=== PATIENT | female | born 1940 | race Caucasian/White ===

== ENCOUNTER 2024-10-30 06:55 | Observation (INO) ==
--- NOTE | 2024-09-23 15:27 | PAT Medication Instructions ---
Medication Instructions Date of Service September 23, 2024 Home Medications Medication Instructions Recorded Bifidobacterium infantis 10.5 mg 10.5 mg PO DAILY #30 tabs 02/07/24 (10 million cell) chewable tablet (Align (B.infantis)) Medication List: amlodipine 5 mg tablet 5 mg PO QPM aspirin 81 mg tablet,delayed release 81 mg PO QPM calcium 315 mg (as citrate)-vitamin D3 6.25 mcg (250 unit) tablet (Citracal + Vitamin D Maximum) 2 tab PO DAILY coQ10 (ubiquinol) 100 mg capsule (Qunol Soto CoQ10) 100 mg PO DAILY losartan 100 mg tablet 100 mg PO HS sskowzkj-ivt-ivzxxw 5 mg-zeaxanth 1 mg-bilberry 7.5 mg-herbal capsule (Macular Health Formula) 1 cap PO BID pantoprazole 20 mg tablet,delayed release 20 mg PO BID pravastatin 20 mg tablet 20 mg PO HS Bifidobacterium infantis 10.5 mg (10 million cell) chewable tablet (Align (B.infantis)) 10.5 mg PO DAILY fluticasone propionate 50 mcg/actuation nasal spray,suspension (Flonase Allergy Relief) 2 mcg intranasal UD PRN allergies neomycin 500 mg tablet 500 mg PO BID omega 1-xio-jef-fish oil 900 mg-1,400 mg capsule,delayed release 1 cap PO DAILY rifaximin 550 mg tablet (Xifaxan) 550 mg PO TID MEDICATION INSTRUCTIONS: Continue as directed fluticasone propionate 50 mcg/actuation nasal spray,suspension (Flonase Allergy Relief) 2 mcg intranasal UD PRN allergies neomycin 500 mg tablet 500 mg PO BID rifaximin 550 mg tablet (Xifaxan) 550 mg PO TID ASK your prescriber and surgeon aspirin 81 mg tablet,delayed release 81 mg PO QPM STOP taking 2 weeks before surgery omega 2-htm-ghl-fish oil 900 mg-1,400 mg capsule,delayed release 1 cap PO DAILY coQ10 (ubiquinol) 100 mg capsule (Qunol Soto CoQ10) 100 mg PO DAILY DO NOT take the morning of surgery calcium 315 mg (as citrate)-vitamin D3 6.25 mcg (250 unit) tablet (Citracal + V itamin D Maximum) 2 tab PO DAILY Bifidobacterium infantis 10.5 mg (10 million cell) chewable tablet (Align (B.infantis)) 10.5 mg PO DAILY xyzscexv-kvo-jgiius 5 mg-zeaxanth 1 mg-bilberry 7.5 mg-herbal capsule (Macular Health Formula) 1 cap PO BID Take morning of surgery With a small sip of water, OTHERWISE NOTHING TO EAT OR DRINK AFTER MIDNIGHT: pantoprazole 20 mg tablet,delayed release 20 mg PO BID Take evening before surgery pravastatin 20 mg tablet 20 mg PO HS losartan 100 mg tablet 100 mg PO HS amlodipine 5 mg tablet 5 mg PO QPM pantoprazole 20 mg tablet,delayed release 20 mg PO BID gqnxfnif-hid-rieetf 5 mg-zeaxanth 1 mg-bilberry 7.5 mg-herbal capsule (Macular Health Formula) 1 cap PO BID Other Notes If you have any questions please call us at [phone] or [phone] or [phone] or [phone]
--- NOTE | 2024-10-02 13:09 | Anesthesiology Consultation ---
Date of Service October 02, 2024 Assessment & Plan (1) Encounter for pre-operative examination: - patient reports upcoming carotid doppler next week through [facility] vascular surgery. - Case discussed in detail with Dr. Esquivel who advised awaiting carotid doppler and then reviewing with anesthesiologist if anything further is needed, he anticipates if doppler is stable patient could proceed without additional evaluation. - Outpatient joint assessment: Patient is currently scheduled for inpatient pathway. If re-evaluated and patient/surgeon requests outpatient pathway, patient is not ideal candidate for outpatient joint program from anesthesia standpoint. Chart Review Chart Review: Pending: Refer to Additional Notes / Consult section and Patient seen in Pre Admission Testing Teaching & Discussion Pre-Anesthesia Teaching/Discussion Notes: Instructed NPO after midnight before surgery, except medications with 15 cc of water. Medication instructions provided according to the PAT guidelines. History Surgery Operation Date: 10/30/24 08:15 Proposed Procedures p Right Total Knee Arthroplasty - Collin Rogers MD Height/Weight Height: 5 ft 1.5 in Weight: 52.3 kg Allergies Allergy/AdvReac Type Severity Reaction Status Date / Time Alpha-Gal Allergy Intermediate Diarrhea Verified 09/23/24 10:37 (Trfmtvtbo-Xcqjh-8,3-Gala Penicillins Allergy Intermediate Hives Verified 10/02/24 15:54 latex Allergy Mild Rash Verified 09/23/24 10:37 red meat Allergy Mild Abdominal Uncoded 09/23/24 10:37 Pain Medications Home Medications Medication Instructions Recorded Confirmed Last Taken amlodipine 5 mg tablet 5 mg PO QPM 02/05/24 09/23/24 05/19/24 aspirin 81 mg tablet,delayed 81 mg PO QPM 02/05/24 09/23/24 05/16/24 release calcium 315 mg (as 2 tab PO DAILY 02/05/24 09/23/24 05/19/24 citrate)-vitamin D3 6.25 mcg (250 unit) tablet (Citracal + Vitamin D Maximum) coQ10 (ubiquinol) 100 mg capsule 100 mg PO DAILY 02/05/24 09/23/24 05/19/24 (Qunol Soto CoQ10) losartan 100 mg tablet 100 mg PO HS 02/05/24 09/23/24 05/19/24 zfqixnjl-vky-meipzk 5 mg-zeaxanth 1 cap PO BID 02/05/24 09/23/24 05/19/24 1 mg-bilberry 7.5 mg-herbal capsule (Macular Health Formula) pantoprazole 20 mg tablet,delayed 20 mg PO BID 02/05/24 09/23/24 05/20/24 07:00 release pravastatin 20 mg tablet 20 mg PO HS 02/05/24 09/23/24 05/19/24 Bifidobacterium infantis 10.5 mg 10.5 mg PO DAILY #30 tabs 02/07/24 09/23/24 05/19/24 (10 million cell) chewable tablet (Align (B.infantis)) fluticasone propionate 50 2 mcg intranasal UD PRN allergies 09/23/24 09/23/24 Unknown mcg/actuation nasal spray,suspension (Flonase Allergy Relief) neomycin 500 mg tablet 500 mg PO BID 09/23/24 09/23/24 Unknown omega 4-lyo-ybs-fish oil 900 1 cap PO DAILY 09/23/24 09/23/24 Unknown mg-1,400 mg capsule,delayed release rifaximin 550 mg tablet (Xifaxan) 550 mg PO TID 09/23/24 09/23/24 Unknown Past Medical History Medical History Acid reflux controlled, stable per pt 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 traylor- no concerns, will follow up in december Diarrhea Hiatal hernia HTN (hypertension) controlled, stable per pt Hx of Lyme disease (~2017) Hx of migraines Hyperlipidemia Osteoarthritis Other abnormal clinical finding "Hydrogen Methane Imbalance" treated at [place]-reports diarrhea/acid reflux are the symptoms Peripheral artery disease Right knee DJD Patient denies h/o stroke, seizures, heart attack, heart failure, DM, blood clots/DVTs or blood transfusions. Exercise / Class Metabolic Activity II 4-5 Yardwork/Stairs/Walk up hill (denies chest discomfort or shortness of breath with one flight of stairs) Past Family History Family History Mother Ovarian cancer Denies family history of Prostate cancer Breast cancer Colorectal cancer Past Surgical History Surgical History History of esophagogastroduodenoscopy (EGD) History of left knee replacement Hx of colonoscopy Hx of shoulder surgery right mass removed- benign Past Anesthesia History No Hx of Anesthesia Complications and No Family Hx of Anesthesia Complications History of PONV No Hx of Motion Sickness and History of PONV Social History Smoking Status: Never smoker Do You Dip or Chew Tobacco: No Hx Alcohol Use: Yes Alcohol type: wine alcohol intake frequency: a few times a week Hx Substance Use: No substance use type: does not use Review of Systems Patient denies chest pain, shortness of breath, dyspnea on exertion, snoring, witnessed apneas, fever, chills, cough, wheezing, or palpitations. Physical Exam Vital Signs Vitals BP 147/70 P 62 TEMP 97.6 SP02 99% on RA RESP 18 Physical Patient resting comfortably in chair in no acute distress, alert and oriented, responding appropriately throughout visit Full cervical extension range of motion without pain TMD 3.5 finger breadths Mallampati Score 2 Dentition: several caps/crowns and implants, denies chipped or loose teeth, or bridges Lungs: normal respiratory effort. Good air movement, clear throughout to auscultation, no adventitious breath sounds Cardiac: regular rate and rhythm, no murmurs noted Carotid arteries: negative bruit bilat Lab Results Anesthesia Preop Results Results Anesthesia Widget: WBC 10.43 K/ul (4.8-10.8) 10/02/24 Hgb 13.9 g/dl (12.0-16.0) 10/02/24 Hct 40.9 % (37.0-47.0) 10/02/24 Plt 324 K/uL (130-400) 10/02/24 Na 137 mmol/L (136-145) 10/02/24 K 4.1 mmol/L (3.5-5.1) 10/02/24 Cl 103 mmol/L (98-107) 10/02/24 CO2 31 mmol/L (21-32) 10/02/24 BUN 15 mg/dl (6-23) 10/02/24 Creat 0.75 mg/dl (0.6-1.2) 10/02/24 Glucose Level 136 mg/dl (70-99(Fasting)) H 10/02/24 PT 11.0 Seconds (9.0-12.0) 10/02/24 PTT 29 Seconds (21-31) 10/02/24 INR 1.0 (0.9-1.1) 10/02/24 Urine Color Yellow 10/02/24 Urine Appearance Clear (Clear) 10/02/24 Urine pH 6.0 (4.5-7.5) 10/02/24 Urine Specific [place] 1.006 (1.000-1.030) 10/02/24 Urine Protein Negative (Negative) 10/02/24 Urine Glucose (UA) Negative (Negative) 10/02/24 Urine Ketones Negative (Negative) 10/02/24 Urine Blood Negative (Negative) 10/02/24 Urine Nitrite Negative (Negative) 10/02/24 Urine Bilirubin Negative (Negative) 10/02/24 Urine Urobilinogen Negative (Negative) 10/02/24 Urine Leukocyte Esterase Negative (Negative) 10/02/24 Blood Type O Positive 10/02/24 Antibody Screen NEGATIVE 10/02/24 Testing Electrocardiogram Date: 10/02/24 NSR, rate [address] bpm [address] minor nonspecific ST abnormality
[~2024-10-30 06:55] MED LIST: ALLERGY Noted to ORDERED Medication SCH; BUPIVACAINE 0.25% PF 30 ML VIAL ONE; BUPIVACAINE 0.5 % 5 MG/1 ML PF 10ML VIAL ONE
[2024-10-30] MEDS: LR 500ML BOLUS, THEN 15ML/HR IV SCH (07:26)
[2024-10-30] MEDS: dexAMETHasone**PF** 10 MG/ML VIAL IV SCH (07:29)
[2024-10-30] MEDS: ACETAMINOPHEN 500 MG TAB PO SCH ×2 (07:30→14:17)
[2024-10-30] MEDS: traMADol HCL 50 MG TABLET PO SCH (07:30)
[2024-10-30] MEDS: FAMOTIDINE 20 MG TAB PO SCH (07:30)
[2024-10-30] MEDS: CeleBREX 200 MG CAP PO SCH ×2 (07:31→21:06)
[2024-10-30] MEDS: LR 60ML/HR IV SCH (07:32)
[2024-10-30] MEDS: Scopolamine 1 MG TDSY TD SCH (07:32)
[2024-10-30] MEDS ORDERED: MIDAZOLAM HCL 1 MG/ML 2ML VIAL ONE (07:54)
[2024-10-30] MEDS ORDERED: ROPIVACAINE 0.5% 5 MG/ML 30 ML VIAL ONE (08:02)
--- NOTE | 2024-10-30 08:04 | Anesthesiology Consultation ---
Date of Service October 30, 2024 Assessment & Plan Chart Review Chart Review: Acceptable Risk for Surgery Consults Requested none History Surgery Operation Date: 10/30/24 08:15 Proposed Procedures p Right Total Knee Arthroplasty - Collin Rogers MD Height/Weight Height: 5 ft 1.5 in Weight: 52.191 kg Allergies Allergy/AdvReac Type Severity Reaction Status Date / Time latex Allergy Mild Rash Verified 10/30/24 07:13 nickel Allergy Mild Rash Verified 10/30/24 07:13 Alpha-Gal AdvReac Intermediate Diarrhea Verified 10/30/24 07:13 (Iqevlhguc-Khoob-9,3-Gala red meat Allergy Mild Abdominal Uncoded 10/30/24 07:13 Pain Medications Home Medications Medication Instructions Recorded Confirmed Last Taken amlodipine 5 mg tablet 5 mg PO QPM 02/05/24 10/30/24 10/29/24 21:00 aspirin 81 mg tablet,delayed 81 mg PO QPM 02/05/24 10/30/24 10/29/24 21:00 release calcium 315 mg (as 2 tab PO DAILY 02/05/24 10/30/24 10/29/24 08:00 citrate)-vitamin D3 6.25 mcg (250 unit) tablet (Citracal + Vitamin D Maximum) coQ10 (ubiquinol) 100 mg capsule 100 mg PO DAILY 02/05/24 10/30/24 10/16/24 (Qunol Soto CoQ10) losartan 100 mg tablet 100 mg PO HS 02/05/24 10/30/24 10/29/24 21:00 ehysgmpj-idc-wmjemc 5 mg-zeaxanth 1 cap PO BID 02/05/24 10/30/24 10/29/24 21:00 1 mg-bilberry 7.5 mg-herbal capsule (Macular Health Formula) pantoprazole 20 mg tablet,delayed 20 mg PO BID 02/05/24 10/30/24 10/30/24 06:10 release pravastatin 20 mg tablet 20 mg PO HS 02/05/24 10/30/24 10/29/24 21:00 Bifidobacterium infantis 10.5 mg 10.5 mg PO DAILY #30 tabs 02/07/24 10/30/24 10/29/24 08:00 (10 million cell) chewable tablet (Align (B.infantis)) fluticasone propionate 50 2 mcg intranasal UD PRN allergies 09/23/24 10/30/24 10/29/24 15:00 mcg/actuation nasal spray,suspension (Flonase Allergy Relief) omega 5-qtt-egd-fish oil 900 1 cap PO DAILY 09/23/24 10/30/24 10/16/24 mg-1,400 mg capsule,delayed release Active Medications Generic Name Dose Route Start Last Admin Trade Name Freq PRN Reason Stop Dose Admin Acetaminophen 1,000 mg 10/30/24 06:00 10/30/24 07:30 Acetaminophen 500 Mg Tab PO 10/30/24 18:00 1,000 mg PREOP EDNA Administration Celecoxib 200 mg 10/30/24 06:00 10/30/24 07:31 Celebrex 200 Mg Cap PO 10/30/24 18:00 200 mg PREOP EDNA Administration Dexamethasone Sodium Phosphate 10 mg 10/30/24 06:00 10/30/24 07:29 DexamethasonePf 10 Mg/Ml Vial IV 10/30/24 18:00 10 mg PREOP EDNA Administration Famotidine 20 mg 10/30/24 06:00 10/30/24 07:30 Famotidine 20 Mg Tab PO 10/30/24 18:00 20 mg PREOP EDNA Administration Lactated Ringer's 1,000 mls @ 15 mls/hr 10/30/24 06:00 10/30/24 07:26 Lr IV 10/30/24 18:00 15 mls/hr .Q24H EDNA Administration Lactated Ringer's 1,000 mls @ 60 mls/hr 10/30/24 06:00 10/30/24 07:32 Lr IV 10/30/24 22:39 Not Given .[id number] EDNA Scopolamine 1 patch 10/30/24 06:00 10/30/24 07:32 Scopolamine 1 Mg Tdsy TD 10/30/24 18:00 1 patch PREOP EDNA Administration Tramadol HCl 50 mg 10/30/24 06:00 10/30/24 07:30 Tramadol Hcl 50 Mg Tablet PO 10/30/24 18:00 50 mg PREOP EDNA Administration NPO Date Last Intake of Fluids: 10/29/24 Time Last Intake of Fluids: 22:00 Date Last Intake of Solids: 10/29/24 Time Last Intake of Solids: 22:00 Past Medical History Medical History Acid reflux controlled, stable per pt 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 traylor- no concerns, will follow up in december Diarrhea Hiatal hernia HTN (hypertension) controlled, stable per pt Hx of Lyme disease (~2018) Hx of migraines Hyperlipidemia Osteoarthritis Other abnormal clinical finding "Hydrogen Methane Imbalance" treated at [place]-reports diarrhea/acid reflux are the symptoms Peripheral artery disease Right knee DJD Past Family History Family History Mother Ovarian cancer Denies family history of Prostate cancer Breast cancer Colorectal cancer Past Surgical History Surgical History History of esophagogastroduodenoscopy (EGD) History of left knee replacement Hx of colonoscopy Hx of shoulder surgery right mass removed- benign Social History Smoking Status: Never smoker Do You Dip or Chew Tobacco: No Hx Alcohol Use: Yes Alcohol type: wine alcohol intake frequency: a few times a week Hx Substance Use: No substance use type: does not use Physical Exam Vital Signs Last Vital Signs Temp 36.6 C 10/30/24 07:16 Pulse 67 10/30/24 07:16 Resp 20 10/30/24 07:16 BP 145/73 H 10/30/24 07:16 Pulse Ox 100 10/30/24 07:16 O2 Del Method Room Air 10/30/24 07:16
--- NOTE | 2024-10-30 08:05 | History & Physical Bridge Note ---
Date of Service October 30, 2024 History & Physical Bridge Note I have examined the patient, reviewed the History & Physical and in the interval since the performance of the History & Physical I have noted the following changes of clinical significance: no changes noted
[2024-10-30] MEDS: TRANEXAMIC ACID 1,000 MG **IV Pre-op IV SCH (08:06)
[2024-10-30] MEDS: ceFAZolin 2000MG 2,000 MG/15 ML SYR IV SCH ×2 (08:26→16:33)
[2024-10-30] MEDS ORDERED: ePHEDrine sulfate 50 MG/ML AMP IV PRN (08:54)
[2024-10-30] MEDS ORDERED: ONDANSETRON INJ 2 MG/ML 2 ML VIAL IV PRN ×2 (08:54→10:27)
[2024-10-30] MEDS ORDERED: HYDROmorphone INJ 1 MG/ML SYRINGE IV PRN (08:54)
[2024-10-30] MEDS ORDERED: fentaNYL citrate PF 100 MCG/2 ML VIAL IV PRN (08:54)
[2024-10-30] MEDS ORDERED: ATROPINE SULFATE 0.1 MG/ML 10ML SYR IV PRN (08:54)
[2024-10-30] MEDS: ORTHO JOINT ANESTHETIC ONE (09:04)
[2024-10-30] MEDS: ROPIV 0.5% 246mg, Ketorolac 30mg, EPINEPHrine 0.5mg in NSS INFIL SCH (09:47)
[2024-10-30] MEDS: TRANEXAMIC ACID 1,000 MG **IV Intra-op IV SCH (09:47)
[2024-10-30] MEDS ORDERED: diphenhydrAMINE 50 MG/ML VIAL IV PRN (10:27)
[2024-10-30] MEDS ORDERED: NALOXONE HCL 0.4 MG/1 ML VIAL/CARP IV PRN (10:27)
[2024-10-30] MEDS ORDERED: METOCLOPRAMIDE HCL INJ 5 MG/ML 2 ML VIAL IV PRN (10:27)
[2024-10-30] MEDS ORDERED: HYDROmorphone INJ 0.5 MG/0.5 ML SYR IV PRN (10:27)
[2024-10-30] MEDS ORDERED: traMADol HCL 50 MG TABLET PO PRN (10:27)
[2024-10-30] MEDS ORDERED: MAGNESIUM HYDROXIDE SUSP 30 ML UDC PO PRN (10:27)
[2024-10-30] MEDS ORDERED: bisacodyL 10 MG SUPP PR PRN (10:27)
[2024-10-30] MEDS ORDERED: ALUMINUM/MAGNESIUM SUSP 30 ML UDC PO PRN (10:27)
--- NOTE | 2024-10-30 10:27 | Operative Report ---
Post Operative Report Pre & Post Diagnosis Operation Date: 10/30/24 08:15 Pre-Op Diagnosis: Right Knee Osteoarthritis Post-Op Diagnosis: Right Knee Osteoarthritis I identified the patient and participated in the time-out.: Yes Procedure Operation Date: 10/30/24 08:15 Actual Procedures p Right Total Knee Arthroplasty, Cemented(Right) - Collin Rogers MD Surgeon Collin Rogers MD [employer] Libra Turpin PA-C; No fellow Estimated Blood Loss 50 Findings Consistent with Post-Op Diagnosis Specimens Right knee bone and soft tissue Description of Procedure I was present during the entire case assisting with positioning, prepping, draping, wound retraction, wound closure, dressing and immobilizer placement. No fellow present. Please see Dr. Rogers procedure note for specifics of the case. I attest to the content of the Intraoperative Record and any orders documented therein. Any exceptions are noted below.
[2024-10-30] MEDS ORDERED: FLUTICASONE PROPIONATE NA SPR 16 GM BTL NAE PRN (10:30)
--- NOTE | 2024-10-30 10:35 | Operative Report ---
Post Operative Report Pre & Post Diagnosis Operation Date: 10/30/24 08:15 Pre-Op Diagnosis: Right Knee Osteoarthritis Post-Op Diagnosis: Right Knee Osteoarthritis I identified the patient and participated in the time-out.: Yes Procedure Operation Date: 10/30/24 08:15 Actual Procedures p Right Total Knee Arthroplasty, Cemented(Right) - Collin Rogers MD Surgeon Collin Rogers MD Sheet Taker MARY Turpin PA-C. No resident or fellow was available to assist Estimated Blood Loss 50 Findings Consistent with Post-Op Diagnosis Specimens Right knee bone and soft tissue contents Anesthesia Type Spinal MAC Complications none Disposition Disposition: Recovery Room Indications 83-year-old female with right knee severe osteoarthritis refractory to conservative management. I had a long discussion with her about her diagnosis and treatment options. Surgery was indicated to improve pain and promote function. I discussed at length with her the risks and benefits of surgery, alternatives to surgery, and expected outcomes. After reviewing all these she elected to proceed with surgery. All questions were answered. Informed consent was signed. Description of Procedure Patient was identified in the preoperative holding area where her surgical site was marked. She was given an adductor canal block and a spinal by anesthesia then brought back to the operating room where she was moved onto the operating room table and IV sedation was administered. All bony prominences were padded. Exam under anesthesia was performed. This demonstrated range of motion 0 to 120 degrees. Collateral ligaments were stable at 0 and 30 degrees to varus and valgus stress testing. She did have valgus alignment noted. She was then prepped and draped in the usual sterile fashion. Prior to incision a multidisciplinary timeout was called. All in the room in agreement. I began by exsanguinating the limb with an Esmarch bandage. Tourniquet was inflated 250 mmHg. Total tourniquet time for the case was 58 minutes. A midline incision was made for a length of approximately 14 cm starting over the quadriceps tendon and ending at the medial aspect of the tibial tubercle. I dissected down to subcutaneous tissues to the level of the fascia. Full- thickness flaps were raised above the fascia. A median parapatellar arthrotomy was created. Fat pad was excised. Medial release was undertaken using electrocautery. Synovitis in the suprapatellar pouch was removed with electrocautery. Patella was then everted and prepared. Thickness of the patella was measured at 21 mm. Saw was used to resect approximately 7 mm of bone. Caliper was used and she now was at a thickness of 14 mm which I was happy with. A 32 diameter oval patella size nicely under the cut surface. The 3 peg holes were drilled and the trial button was placed. The thickness was remeasured at 22.5 mm which I was happy with. Trial patellar button was then removed and the patella was everted. The knee was flexed up. Osteophytes from the notch were removed with an osteotome. Cruciate ligaments were removed with electrocautery. Intramedullary drill was used into the femur. The 5 degree distal femoral cutting guide was slid down and pinned. Distal femoral resection was then made without difficulty. Next, the tibia was exposed. The lateral meniscus was sharply excised. She had significant grade 4 wear had been noted in the lateral compartment with eburnation of the lateral tibial plateau as well as the lateral femoral condyle. The cutting jig was set to remove 5 mm of bone off the more involved lateral compartment. This made for a quite a bit thicker resection off the medial tibial plateau. However the intramedullary cutting jig was set for a 3 degree posterior cut in neutral varus and valgus alignment. Saw cut was made without difficulty. Tibia sized to a size 3. Extension gap was checked and was rectangular which I was happy with. Next, the femoral sizing jig was used to size her to a size 4 femur. The guide was set at 3 degrees of external rotation to match her epicondylar axis which we marked out with a marker. 2 pin holes were made through the guide. Sizing guide was removed. Again we checked Whitesides line and this was perpendicular to the 2 drill holes which I was also happy with. The size 4 cutting block was then placed on the distal femur and pinned into position. The 5 femoral cuts were made without difficulty and the cutting jig was removed. Next, the box cutting guide was applied to the distal femur. This had nice fit with her bony cuts. We reamed out the box and then used the chisel to remove the remaining bone. Once this was complete the trial box was placed and the tibia was subluxated forward. Tibia was prepared for a size 3. An 11 mm poly trial was placed. The knee was brought through full range of motion. She had full extension and flexion up to 130 degrees. She was stable to varus and valgus throughout the full range of motion. The patella tracked nicely. At this point trial components were removed. Knee was brought to 90 degrees of flexion and the periarticular injection cocktail was placed with approximately 10 cc in the posterior capsule and another 10 cc on the sides of the tibia, and 10 cc subperiosteally along the femoral cut surfaces. Cement was then mixed on the back table. The bony cut surfaces were irrigated and dried. Femur was then cemented on first. Excess cement was removed. Tibia was cemented on second. Again excess cement was removed and the polyethylene was then locked into the tibial tray. Knee was brought into full extension and the patella was cemented and clamped. Again excess cement was removed. While the cement was curing the knee was soaked with a dilute Betadine solution. The periarticular injection cocktail was then placed in the subcutaneous tissues. Knee was irrigated out with copious amounts normal saline. Tourniquet was let down and meticulous hemostasis was achieved. We then began to close. The arthrotomy was closed with 0 Vicryl sutures in womxjo-ol-otuza fashion along the medial retinaculum. #1 Vicryl was run to repair the quadriceps and patellar tendon. Deep dermis was closed with inverted buried 2-0 Vicryl sutures in interrupted fashion. Skin was closed with Zipline and Dermabond. Silverlon dressing was placed followed by compressive dressing. Patient then had her sedation lifted and was transferred to the recovery room in stable condition. Postoperative course: Patient be admitted overnight for pain control and monitoring. She is weightbearing as tolerated. Knee immobilizer to be worn for the first 48 hours. Summary of implants: [employer] Oxinium size 4 right femur, size 3 tibia, 3/4 polyethylene insert with 11 mm thickness, and 32 oval dome patella. I attest to the content of the Intraoperative Record and any orders documented therein. Any exceptions are noted below.
[2024-10-30] MEDS ORDERED: ePHEDrine sulfate 50 MG/5 ML SYR ONE (10:36)
[2024-10-30] MEDS ORDERED: PROPOFOL IV EMULSION 10 MG/ML 20 ML VIAL IV ONE (10:36)
--- NOTE | 2024-10-30 10:49 | XRay Report ---
XR knee RT 1 or 2V routine CLINICAL HISTORY: Surgical Post Op COMPARISON: 10/15/2024 FINDINGS: Postop total knee replacement examination consisting of an AP and lateral view demonstrate s satisfactory positioning and alignment of the prosthetic components. Postoperative changes are note d in the soft tissues. IMPRESSION: Satisfactory postop appearance. ACT 112: Negative or not required by law. Electronically signed by: Melissa Harden M.D. 10/30/2024 10:47 AM
--- OUTSIDE RECORDS SUMMARY | 2024-10-30 11:24 | External Medical Summary | Continuity of Care Document ---
Author Name Unknown Organization [address] Address [address] [place], [place] [address] Care Team Providers Care Sports Doctor Name Role Phone Zayda Gordillo Primary Care Physician [phone] [id number] Date(s): 10/16/24 - 10/16/24 [facility] [address], [address] [place] [address] [phone] Discharge Disposition: Home or Self Care Attending Physician: NIKO Hayden Lynn Encounter Type: Clinic Allergies, Adverse Reactions, Alerts Substance Criticality Severity Reaction Reaction Severity Status Nickel Red, irritation Acti ve red meat Gastrointestinal upset Active Latex Rash Active Immunizations Given and Recorded Vaccine Date Status Refusal Reason RSV vaccine, preF A-preF B, recombinant 05/12/24 R ecorded influenza virus vaccine, inactivated 04/29/24 Bubba rded influenza virus vaccine, inactivated 07/01/18 Bubba rded influenza virus vaccine, inactivated 05/21/17 Bubba rded influenza virus vaccine, inactivated 05/15/16 Bubba rded influenza virus vaccine, inactivated 07/05/15 Bubba rded SARS-CoV-2 (COVID-19) mRNA-vacc - [id number] 04/29/24 Recorded Zoster Vaccine Unspecified 02/17/18 Recorded pneumococcal 13-valent vaccine 08/27/15 Recorded pneumococcal 13-valent vaccine 10/19/14 Recorded tetanus/diphtheria/pertuss, acel (Tdap) 10/19/14 R ecorded Medications amLODIPine 5 mg oral tablet Start: 09/18/24 10:00:00 AM EST, 1 tab, PO, Daily, Disp# 90 tab, Refills: 2, Pharmacy: [id number] Start Date: 09/18/24 Status: Ordered Quantity: 90.0 Unit: tab Repeat number: 1 aspirin 81 mg oral delayed release tablet Start: 08/31/23 7:57:00 AM EST, 1 tab, PO, Daily Start Date: 08/31/23 Status: Ordered Repeat number: 1 Citracal + D Start: 08/31/23 7:59:00 AM EST, 2 tab, PO, Daily Start Date: 08/31/23 Status: Ordered Repeat number: 1 CoQ10 100 mg oral capsule Start: 08/31/23 8:00:00 AM EST, 1 cap, PO, Daily Start Date: 08/31/23 Status: Ordered Repeat number: 1 cycloSPORINE 0.05% ophthalmic emulsion INSTILL 1 DROP INTO BOTH EYES TWICE A DAY Start Date: 01/28/24 Status: Ordered Repeat number: 1 losartan 100 mg oral tablet Start: 02/26/24 6:45:00 AM EDT, 1 tab, PO, Daily, Disp# 90 tab, Refills: 2, TAKE 1 TABLET BY MOUTH EVERY DAY, Pharmacy: [facility]/pharmacy #[id number] Start Date: 02/26/24 Stop Date: 11/22/24 Status: Ordered Quantity: 90.0 Unit: tab Repeat number: 3 Macular Health Formula oral capsule Start: 04/16/24 9:04:00 AM EDT, See Instructions, 2 capsules po daily Start Date: 04/16/24 Status: Ordered Repeat number: 1 Tinnie-3 1000 mg oral capsule Start: 08/31/23 7:58:00 AM EST, 1 cap, PO, Daily Start Date: 08/31/23 Status: Ordered Repeat number: 1 pantoprazole 40 mg oral delayed release tablet Start: 08/26/24 6:16:00 AM EST, 1 tab, PO, bid, Disp# 180 tab, Refills: 1, Pharmacy: [id number] Start Date: 08/26/24 Status: Ordered Quantity: 180.0 Unit: tab Repeat number: 1 pravastatin 20 mg oral tablet Start: 02/26/24 6:45:00 AM EDT, 1 tab, PO, qhs, Disp# 90 tab, Refills: 2, Pharmacy: [facility]/pharmacy #[id number] Start Date: 02/26/24 Stop Date: 11/22/24 Status: Ordered Quantity: 90.0 Unit: tab Repeat number: 3 Probiotic Formula Start: 08/31/23 7:58:00 AM EST, 1 cap, PO, Daily Start Date: 08/31/23 Status: Ordered Repeat number: 1 Problem List Condition Confirmation Course Effective Dates Status H ealth Status Informant Diarrhea Confirmed Active Arthritis of knee Confirmed Active Bilateral carotid artery stenosis Confirmed Active Carotid artery stenosis, unilateral Confirmed Active Alpha galactosidase deficiency Confirmed Active GERD (gastroesophageal reflux disease) Confirmed Active Headache Confirmed Active Hiatal hernia Confirmed Active History of left knee replacement Confirmed Active Osteopenia Confirmed Active Tingling Confirmed Active Peripheral arterial disease Confirmed Active Procedures Procedure Date Related Diagnosis Body Site Status EGD - esophagogastroduodenoscopy 1 05/20/24 Completed Colonoscopy 2 05/13/24 Completed Mammogram 3 02/17/22 Completed Mammogram 4 02/07/21 Completed Mammogram 5 01/26/20 Completed Mammogram 6 01/08/19 Completed Colonoscopy 7 06/12/16 Completed 1Normal esophagus, stomach and examined duodenum. No specimens collected. 2The rectum, sigmoid colon, descending colon, splenic flexure, transverse colon, hepatic flexure, ascending colon and cecum are normal. Biopsied. No repeat colonoscopy d/t age. 3normal 4normal 5normal 6normal 7Internal hemmorrhoids Results Radiology Reports * Exam Date Time Procedure Performing Provider Status 10/16/24 2:54 PM VL Carotid Duplex Bilateral Tristan Rg; Final Notes: (VL Carotid Duplex Bilateral) Reason For Exam: reagan VL Carotid Duplex Bilateral [facility] FINAL REPORT Name: VIC WHITE : 1940 Visit: [id number] Date: 16 Oct 2024 TYPE OF TEST: Cerebrovascular Duplex REASON FOR TEST Known carotid stenosis INTERPRETATION/FINDINGS Duplex imaging performed of the bilateral extracranial arteries: 1. 60-69% stenosis in the right internal carotid artery. 2. No hemodynamically significant stenosis in the left internal carotid artery. 3. No significant stenosis in the bilateral external carotid arteries. 4. Normal, antegrade flow in the bilateral vertebral arteries. 5. Normal flow in the bilateral proximal subclavian arteries. Plaque Morphology: 1. Smooth-surfaced, fibro-fatty plaque in the right bulb and internal carotid artery. 2. Complex, calcified plaque in the left bulb and internal carotid artery. Compared to the previous study performed 04/07/2024, there is no change. IMPRESSION/COMMENTS I have personally reviewed the data relevant to the interpretation of this study. TECHNOLOGIST: Em ANGEL, RDCS, RVT PHYSICIAN: Daniel Campbell MD Signed: 10/17/2024 05:02 PM Final Dictated by:MD Cmapbell John F Dictated DT/TM:10/17/2024 5:02 Signed by:MD Campbell John F Signed (Electronic Signature):10/17/2024 5:02 p Transcribed by:JFR Social History Social History Type Response Smoking Status Never smoked cigaret shelley Sex Female Sex Representation Female (finding) Patient Care team information Care Team Personnel Name: DO Gordillo Stephanie Marie Position: Physician - Family Med Member Role: Primary Care Provider Address: [address] [facility] [address] Telecom: [phone] Name: NIKO Hayden Lynn Position: Physician Pastry Cook Exempt - Vasc Surg Member Role: Lifetime Relationship Address: [address] [facility] [address] Telecom: [phone] Care Team Related Persons Name: VINAY VILLAFUERTE Insurance Providers Guarantor name: KEIKO Health Plan Information #: 1 Payer: MAD[employer] Member Number: [id number] Policy Number: NA Group Number: [id number] Health Plan Information #: 2 Payer: AET[employer] Member Number: [id number] Policy Number: NA Group Number: NA
--- OUTSIDE RECORDS SUMMARY | 2024-10-30 11:24 | External Medical Summary | Continuity of Care Document ---
Author Name Unknown Organization [address] Address [address] [place], [place] [id number] Care Team Providers Care Recreation Superintendent Name Role Phone Zayda Gordillo Primary Care Physician [phone] [id number] Date[facility] 10/16/24 - 10/16/24 [facility] [address], [address] [place] [address] [phone] Discharge Disposition: Home or Self Care Attending [...] 07/05/15 Bubba rded SARS-CoV-2 (COVID-19) mRNA-vacc - [id number] 04/29/24 Recorded Zoster Vaccine Unspecified 02/17/18 Recorded pneumococcal 13-valent vaccine 08/27/15 Recorded pneumococcal 13-valent vaccine 10/19/14 Recorded tetanus/diphtheria/pertuss, acel (Tdap) 10/19/14 R ecorded Medications amLODIPine 5 mg oral tablet Start: 09/18/24 10:00:00 AM EST, 1 tab, PO, Daily, Disp# 90 tab, Refills: 2, Pharmacy: [id number] Start Date: 09/18/24 Status: Ordered Quantity: 90.0 [...] 1 TABLET BY MOUTH EVERY DAY, Pharmacy: [facility]/pharmacy #[id number] Start Date: 02/26/24 Stop Date: 11/22/24 Status: Ordered Quantity: 90.0 Unit: tab Repeat number: 3 Macular Health Formula oral capsule Start: 04/16/24 9:04:00 AM EDT, See Instructions, 2 capsules po daily Start Date: 04/16/24 Status: Ordered Repeat number: 1 [place]ren-3 1000 mg oral capsule Start: 08/31/23 7:58:00 AM EST, 1 cap, PO, Daily Start Date: 08/31/23 Status: Ordered Repeat number: 1 pantoprazole 40 mg oral delayed release tablet Start: 08/26/24 6:16:00 AM EST, 1 tab, PO, bid, Disp# 180 tab, Refills: 1, Pharmacy: [id number] Start Date: 08/26/24 Status: Ordered Quantity: 180.0 Unit: tab Repeat number: 1 pravastatin 20 mg oral tablet Start: 02/26/24 6:45:00 AM EDT, 1 tab, PO, qhs, Disp# 90 tab, Refills: 2, Pharmacy: [facility]/pharmacy #[id number] Start Date: 02/26/24 Stop Date: 11/22/24 [...] Date Time Procedure Performing Provider Status 10/16/24 2:55 PM VL Lower Ext Arterial Duplex Bilateral Em Rg; Final Notes: (VL Lower Ext Arterial Duplex Bilateral) Reason For Exam: pad VL Lower Ext Arterial Duplex Bilateral [facility] FINAL REPORT Name: VIC WHITE : 1940 Visit: [id number] Date: 16 Oct 2024 TYPE OF TEST: Extremity Arterial Duplex REASON FOR TEST SFA Occlusion INTERPRETATION/FINDINGS Arterial duplex imaging performed of the bilateral lower extremities: RIGHT LE. No stenosis identified in the distal external iliac, common femoral and proximal profunda femoris arteries. 2. 75-99% stenosis of the proximal superficial femoral artery with biphasic flow insonated distally. 3. No stenosis identified in the popliteal, posterior tibial or peroneal arteries. 4. 50-74% stenosis of the proximal anterior tibial artery. Occlusion of the proximal, mid and distal anterior tibial artery. 5. The right ankle/brachial index is 0.97 (normal). LEFT LE. No stenosis identified in the distal external iliac, common femoral and proximal profunda femoris arteries. 2. 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 3. No stenosis identified in the popliteal, posterior tibial or peroneal arteries. 4. 75-99% stenosis of the mid anterior tibial artery. 5. The left ankle/brachial index is 0.70 (moderately reduced). Compared to the previous study performed 04/07/2024, there is no significant change. IMPRESSION/COMMENTS I have personally reviewed the data relevant to the interpretation of this study. TECHNOLOGIST: Em ANGEL, RDCS, RVT PHYSICIAN: Daniel Campbell MD Signed: 10/17/2024 05:01 PM Final Dictated by:MD Campbell John F Dictated DT/TM:10/17/2024 5:01 Signed by:MD Campbell John F Signed (Electronic Signature):10/17/2024 5:01 p Transcribed by:JFR Social History Social History Type Response Smoking Status Never smoked cigaret shelley Sex Female Sex Representation Female (finding) Patient Care team information Care Team Personnel Name: DO Gordillo Stephanie Marie Position: Physician - Family Med Member Role: Primary Care Provider Address: [address] [place] [address] Telecom: [phone] Name: NIKO Hayden Lynn Position: Physician Equip Tech Exempt - Vasc Surg Member Role: Lifetime Relationship Address: [address] [place] [address] Telecom: [phone] Care Team Related Persons Name: VINAY VILLAFUERTE Insurance Providers Guarantor name: KEIKO Health Plan Information #: 1 Payer: AET[employer] Member Number: [id number] Policy Number: NA Group Number: [id number] Health Plan Information #: 2 Payer: AET[employer] Member Number: [id number] Policy Number: NA Group Number: NA
--- OUTSIDE RECORDS SUMMARY | 2024-10-30 11:24 | External Medical Summary | Continuity of Care Document ---
Author Name Unknown Organization [facility] [address] [place] [phone] Care Team Providers Care Heavy Equipment Rental Manager Name Role Phone Zayda Gordillo Primary Care Physician [phone] [id number] Date(s[facility] 10/14/24 - 10/14/24 [facility] [address] [place] [address] [address] [place] [address] [phone] Encounter Diagnosis Encounter for pre-operative examination(Discharge Diagnosis) - 10/14/24 Arthritis of knee(Discharge Diagnosis) - 10/14/24 Body mass index [BMI] 22.0-22.9, adult(Discharge Diagnosis) - 10/14/24 Discharge Disposition: Home or Self Care Attending Physician: NIKO Pizano Kimberly A Encounter Type: Clinic Allergies, Adverse Reactions, Alerts Substance Criticality Severity Reaction Reaction Severity Status Nickel Red, irritation Acti ve red meat Gastrointestinal upset Active Latex Rash Active Assessment and Plan Extracted from: Title:Preoperative evaluation Author:CAROLINA Pizano Kimberly A Date:10/14/24 1. Encounter for pre-operat giuseppe examination Vic Pereyra is seen for shyam-operative risk stratification. They report no cardiac symptoms at rest or on exertion. She does have a history of carotid stenosis and PVD, both managed by Dr. Altamirano and noted to be stable. She is scheduled for repeated vascular testing later this week She has no history of valvular heart disease, CHF, CVD, diabetes, EtOH/drug abuse, recent anticoagulant or antithrombotic use, personal or family history of coagulopathy, or CKD). They report no history of (undergoing a stress test, cardiac catheterization, or coronary revascularization). They report being able to achieve 3-6 METs of activity during routine exercise. This patient's cardiac risk factors include her above mentioned PVD/carotid stenosis. According to the RCRI, this number of risk factors stratifies the patient to Class I, which carries with it a 3.9% risk of major CV complications, such as MT, CHF, or malignant arrhythmia (Circulation 1999; 100:1043). These risks, along with the risk of shyam-operative stroke, were discussed with the patient, in light of the benefits of possible surgery. Vic wishes to proceed with the operation but is aware that she first needs to be evaluated by vascular surgery. If she is considered medically optimized by Dr. Altamirano she wishes to proceed with the scheduled TKA. This assessment was conveyed to the surgery and anesthesia teams. 2. Arthritis of knee See above Immunizations Given and Recorded Vaccine Date Status Refusal Reason RSV vaccine, preF A-preF B, recombinant 05/12/24 R ecorded influenza virus vaccine, inactivated 04/29/24 Bubba rded influenza virus vaccine, inactivated 07/01/18 Bubba rded influenza virus vaccine, inactivated 05/21/17 Bubba rded influenza virus vaccine, inactivated 05/15/16 Bubba rded influenza virus vaccine, inactivated 07/05/15 Bubba rded SARS-CoV-2 (COVID-19) mRNA-vacc - [id number] 04/29/24 Recorded Zoster Vaccine Unspecified 02/17/18 Recorded pneumococcal 13-valent vaccine 08/27/15 Recorded pneumococcal 13-valent vaccine 10/19/14 Recorded tetanus/diphtheria/pertuss, acel (Tdap) 10/19/14 R ecorded Medications amLODIPine 5 mg oral tablet Start: 09/18/24 10:00:00 AM EST, 1 tab, PO, Daily, Disp# 90 tab, Refills: 2, Pharmacy: [id number] Start Date: 09/18/24 Status: Ordered Quantity: 90.0 [...] 1 TABLET BY MOUTH EVERY DAY, Pharmacy: [facility]/pharmacy #[id number] Start Date: 02/26/24 Stop Date: 11/22/24 Status: Ordered Quantity: 90.0 Unit: tab Repeat number: 3 Macular Health Formula oral capsule Start: 04/16/24 9:04:00 AM EDT, See Instructions, 2 capsules po daily Start Date: 04/16/24 Status: Ordered Repeat number: 1 [place]-3 1000 mg oral capsule Start: 08/31/23 7:58:00 AM EST, 1 cap, PO, Daily Start Date: 08/31/23 Status: Ordered Repeat number: 1 pantoprazole 40 mg oral delayed release tablet Start: 08/26/24 6:16:00 AM EST, 1 tab, PO, bid, Disp# 180 tab, Refills: 1, Pharmacy: [id number] Start Date: 08/26/24 Status: Ordered Quantity: 180.0 Unit: tab Repeat number: 1 pravastatin 20 mg oral tablet Start: 02/26/24 6:45:00 AM EDT, 1 tab, PO, qhs, Disp# 90 tab, Refills: 2, Pharmacy: [facility]/pharmacy #[id number] Start Date: 02/26/24 Stop Date: 11/22/24 Status: Ordered Quantity: 90.0 Unit: tab Repeat number: 3 Probiotic Formula Start: 08/31/23 7:58:00 AM EST, 1 cap, PO, Daily Start Date: 08/31/23 Status: Ordered Repeat number: 1 Mental Status 10/14/24 Barriers to Learning one year None evide nt Mandatory Health Literacy Documentation Yes Health Literacy Communication Barriers N ever Primary Language Kyrgyz Problem List Condition Confirmation Course Effective Dates [...] Confirmed Active Peripheral arterial disease Confirmed Active Diagnosis Diagnosis Type Effective Dates Health Status Clinical Service Informant Encounter for pre-operative examination Discharge Diagnosis 10/14/24 Non-Specified Arthritis of knee Discharge Diagnosis 10/14/24 Non-Specified Body mass index [BMI] 22.0-22.9, adult Discharge Diagnosis 10/14/24 Non-Specified Procedures Procedure Date Related Diagnosis Body Site [...] age. 3normal 4normal 5normal 6normal 7Internal hemmorrhoids Vital Signs Most recent to oldest [Reference Range]: 1 Height 155 cm (10/14/24 10:40 AM) Patient Weight 53 kg (10/14/24 10:40 AM) Body Mass Index 22.06 kg/m2 (10/14/24 10:40 AM) Heart Rate 66 bpm (10/14/24 10:40 AM) Respiratory Rate 17 br/min (10/14/24 10:40 AM) Blood Pressure 124/60mmHg (10/14/24 10:40 AM) Cuff Pulse Pressure 64 mmHg (10/14/24 10:40 AM) Social History Social History Type Response Smoking Status Never smoked cigaret shelley Sex Female Sex Representation Female (finding) FCM Outpt Note * NIKO Pizano, Lizzeth Yoo: PERFORM Event Display: FCM Outpt Note Authored Date: [id number] Assessment/Plan 1. Encounter for pre-operative examination Vic Pereyra is seen for shyam-operative risk stratification. They report no cardiac symptoms at rest or on exertion. She does have a history of carotid stenosis and PVD, both managed by Dr. Altamirano and noted to be stable. She is scheduled for repeated vascular testing later this week She has no history of valvular heart disease, CHF, CVD, diabetes, EtOH/drug abuse, recent anticoagulant or antithrombotic use, personal or family history of coagulopathy, or CKD). They report no history of (undergoing a stress test, cardiac catheterization, or coronary revascularization). They report being able to achieve 3-6 METs of activity during routine exercise. This patient's cardiac risk factors include her above mentioned PVD/carotid stenosis. According to the RCRI, this number of risk factors stratifies the patient to Class I, which carries with it a 3.9% risk of major CV complications, suchas MT, CHF, or malignant arrhythmia (Circulation 1999; 100:1043). These risks, along with the risk of shyam-operative stroke, were discussed with the patient, in light of the benefits of possible surgery. Vic wishes to proceed with the operation but is aware that she first needs to be evaluated by vascular surgery. If she is considered medically optimized by Dr. Altamirano she wishes to proceed with the scheduled TKA. This assessment was conveyed to the surgery and anesthesia teams. 2. Arthritis of knee See above Chief Complaint Preop for knee replacement. History of Present Illness PRE-OPERATIVE EVALUTION Vic is a very healthy 83yo female here today at the request of Dr. Rogers. 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 She has failed conservative treatments including steroid injections, PT and exercise. She did have a left TKA a few years ago at [facility] with no complications. She does have a history of PVD as well as carotid stenosis. She was last seen by Dr. Altamirano in March of 2024. Her right ICA showed approximately 60% stenosis, similar to that in the past. Both have been stable. She does have an appt scheduled with Dr. Altamirano on 10/21/24 with studies a few days prior. She remains asymptomatic. She is currently on ASA 81mg daily. Her hypertension is also well controlled. BP in office today within goal at 124/60. Remains on Amlodipine 5mg as well as Losartan 100mg daily. She has already seen pre-anesthesia and completed her preoperative labs and EKG. Requested by: Dr. Rogers Planned surgery: Right TKA with Dr. Rogers on 10/30/24 [X] Intermediate risk (intraperitoneal, intrathoracic, CEA, head/ neck, ortho, urologic, prostate) Exercise tolerance: 3-6 METS [Moderate]: fast walk; stationery bike; fast dance; rake leaves; garden; push mowing Bleeding tendency: Denies h/o bleeding disorders or blood clots Substance use: None Prior anesthesia: No history of anesthesia complications with prior surgeries. Revised Cardiac Risk Index: Score= 0 or 1 [0] Higher Risk Surgery (intraperitoneal, intrathoracic, supra-inguinal vascular) [0] Ischemic Heart Disease [0] History of CHF [0] History of cerebrovascular disease [0] Insulin therapy for DM [0] Pre-op Cr >2 Total Score = 0 Review of Systems General: Normal energy. No fevers, chills or night sweats. HEENT: No blurred vision, loss of vision, diplopia, rhinorrhea, congestion or sore throat. Cardiovascular: No chest pain, palpitations, tachycardia, bradycardia, pre syncope or syncope. Respiratory: No cough, shortness of breath or wheezing. Gastrointestinal: No nausea, vomiting, diarrhea, constipation, abdominal pain or heartburn. Genitourinary: No dysuria, hematuria, urinary frequency or urgency. Musculoskeletal: No joint pain or muscle aches. Skin: No change in skin, hair or nails. No rashes. Neurologic: No headaches, dizziness, weakness, seizures, confusion or loss of balance. Psychiatric: see HPI. Endocrine: LMP: Hematological: No easy bruising or bleeding. Other: N/A Physical Exam Vitals & Measurements HR: 66 (Monitored) RR: 17 BP: 124/60 SpO2: 99% HT: 155 cm WT: 53.000 kg (Dosing) WT: 53 kg BMI: 22.06 PHQ2 Data (Data Documented on:10/14/2024 10:39) Emotional health assessment NEGATIVE General: Alert and oriented, No acute distress, Very pleasant Well groomed Eye: Pupils are equal, round and reactive to light, Extraocular movements are intact, Normal conjunctiva. HENT: Normocephalic, Neck: Supple, No lymphadenopathy. Respiratory: Lungs are clear to auscultation, Respirations are non- labored, Breath sounds are equal, Symmetrical chest wall expansion. Cardiovascular: Normal rate, Regular rhythm, No murmur, No gallop, No edema. Abdomen: Normoactive BS x 4. No R/G/R. No organomegaly. Soft, nontender, nondistended Lymphatics: No submandibular, anterior or posterior cervical adenopathy palpable. Musculoskeletal : No functional arthritic changes FROM Normal gait. Integumentary: Warm, [place]. No rashes or changing lesions. Neurologic: Alert, Oriented, Cranial Nerves II-XII are grossly intact. Cognition and Speech: Oriented, Speech clear and coherent, Functional cognition intact. Psychiatric: Cooperative, Appropriate mood & affect, Normal judgment. 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 Bilateral carotid artery stenosis Carotid artery stenosis, unilateral Diarrhea GERD (gastroesophageal reflux disease) Headache Hiatal hernia History of left knee replacement Osteopenia Peripheral arterial disease Tingling Procedure/Surgical History •EGD - esophagogastroduodenoscopy| Service Date: 05/20/2024•Colonoscopy| Service Date: 05/13/2024•Mammogram| Service Date: 02/17/2022•Mammogram| Service Date: 02/07/2021•Mammogram| Service Date: 01/26/2020•Mammogram| Service Date: 01/08/2019•Colonoscopy| Service Date: 06/12/2016 Medications amLODIPine(amLODIPine 5 mg oral tablet), 1 tab, PO, Daily aspirin(aspirin 81 mg oral delayed release tablet), 81 mg= 1 tab, PO, Daily bifidobacterium-lactobacillus(Probiotic Formula), 1 cap, PO, Daily calcium-vitamin D(Citracal + D), 2 tab, PO, Daily cycloSPORINE ophthalmic(cycloSPORINE 0.05% ophthalmic emulsion) losartan(losartan 100 mg oral tablet), 100 mg= 1 tab, PO, Daily, 2 refills multivitamin with minerals(Macular Health Formula oral capsule), See Instructions omega-3 polyunsaturated fatty acids([place]-3 1000 mg oral capsule), 1000 mg= 1 cap, PO, Daily pantoprazole(pantoprazole 40 mg oral delayed release tablet), 1 tab, PO, bid pravastatin(pravastatin 20 mg oral tablet), 20 mg= 1 tab, PO, qhs, 2 refills ubiquinone(CoQ10 100 mg oral capsule), 100 mg= 1 cap, PO, Daily Allergies Latex Rash Nickel Red, irritation red meat Gastrointestinal upset Social History Smoking Status Never smoked cigarettes Alcohol Use:Current Type:Wine Frequency:3-5 times per week Home/Environment Lives with:Children Living situation:Home/Independent Feels unsafe at home:No Tobacco - Denies Tobacco Use Intake (IView) Smoking History Cigarette smoker: Never smoked cigarettes Tobacco Product Use: Never used other tobacco products Immunizations Vaccine Date Status RSV vaccine, preF A-preF B, recombinant 05/12/2024 Recorded influenza virus vaccine, inactivated 04/29/2024 Recorded SARS-CoV-2 (COVID-19) mRNA-vacc - [id number] 04/29/2024 Recorded influenza virus vaccine, inactivated 07/01/2018 Recorded Zoster Vaccine Unspecified 02/17/2018 Recorded influenza virus vaccine, inactivated 05/21/2017 Recorded influenza virus vaccine, inactivated 05/15/2016 Recorded pneumococcal 13-valent vaccine 08/27/2015 Recorded influenza virus vaccine, inactivated 07/05/2015 Recorded tetanus/diphtheria/pertuss, acel (Tdap) 10/19/2014 Recorded pneumococcal 13-valent vaccine 10/19/2014 Recorded Recommendations Health Maintenance Pending (in the next year) Due Adult Social Determinants of Health Screening due 10/14/24 Unknown Frequency Medicare Annual Wellness Visit due 10/14/24 and every 1 year Osteoporosis Screening due 10/14/24 One-time only Pneumococcal Vaccine Older Adults due 10/14/24 One-time only Shingles Vaccine due 10/14/24 One-time only Due In Future Adult Influenza Vaccine not due until 01/27/25 and every 1 year Satisfied (in the past 1 year) Satisfied Adult Influenza Vaccine on 04/29/24. Satisfied by DO Gordillo Stephanie Marie Body Mass Index on 10/14/24. Satisfied by CHRIS Carreno Vanessa T Seasonal COVID 19 Vaccine on 04/29/24. Satisfied by DO Gordillo Stephanie Marie Electronic Signature on File Electronically Reviewed/Signed by: Lizzeth Pizano PA-C Author Signature Dt/Tm:10/14/2024 05:16 PM Department of Family Medicine [facility] Patient Care team information Care Team Personnel Name: DO Gordillo Stephanie Marie Position: Physician - Family Med Member Role: Primary Care Provider Address: [address] [place] [address] Subtextualcom: [phone] Name: NIKO Hayden Lynn Position: Physician Nursing Service Administrator Exempt - Vasc Surg Member Role: Lifetime Relationship Address: [address] [place] [address], [place] [address] Telecom: [phone] Care Team Related Persons Name: VINAY VILLAFUERTE Insurance Providers Guarantor name: KEIKO Health Plan Information #: 1 Payer: MADI Member Number: [id number] Policy Number: NA Group Number: [id number] Health Plan Information #: 2 Payer: AETNA Member Number: [id number] Policy Number: NA Group Number: NA"
--- OUTSIDE RECORDS SUMMARY | 2024-10-30 11:24 | External Medical Summary | Continuity of Care Document ---
Author Name Unknown Organization [id number] Address [address] [place] [address] [id number] Care Team Providers Care Tree Trimming Line Technician Name Role Phone Zayda Gordillo Primary Care Physician [phone] Encounter [facility] [id number] Date(s): 10/15/24 - 10/15/24 [facility] [place] [place] [facility] [facility] [address] [place] [address] Discharge Disposition: Home or Self Care Attending Physician: MD Rogers Paul K Encounter Type: Clinic Allergies, Adverse Reactions, Alerts [...] 07/05/15 Bubba rded SARS-CoV-2 (COVID-19) mRNA-vacc - [id number] 04/29/24 Recorded Zoster Vaccine Unspecified 02/17/18 Recorded pneumococcal 13-valent vaccine 08/27/15 Recorded pneumococcal 13-valent vaccine 10/19/14 Recorded tetanus/diphtheria/pertuss, acel (Tdap) 10/19/14 R ecorded Medications amLODIPine 5 mg oral tablet Start: 09/18/24 10:00:00 AM EST, 1 tab, PO, Daily, Disp# 90 tab, Refills: 2, Pharmacy: [id number] Start Date: 09/18/24 Status: Ordered Quantity: 90.0 [...] Date: 04/16/24 Status: Ordered Repeat number: 1 [place]-3 1000 mg oral capsule Start: 08/31/23 7:58:00 AM EST, 1 cap, PO, Daily Start Date: 08/31/23 Status: Ordered Repeat number: 1 pantoprazole 40 mg oral delayed release tablet Start: 08/26/24 6:16:00 AM EST, 1 tab, PO, bid, Disp# 180 tab, Refills: 1, Pharmacy: [id number] Start Date: 08/26/24 Status: Ordered Quantity: 180.0 Unit: tab Repeat number: 1 pravastatin 20 mg oral tablet Start: 02/26/24 6:45:00 AM EDT, 1 tab, PO, qhs, Disp# 90 tab, Refills: 2, Pharmacy: [facility]/pharmacy #[id number] Start Date: 02/26/24 Stop Date: 4/26/25 Status: Ordered Quantity: 90.0 Unit: tab Repeat [...] age. 3normal 4normal 5normal 6normal 7Internal hemmorrhoids Social History Social History Type Response Smoking Status Never smoked cigaret shelley Sex Female Sex Representation Female (finding) Patient Care team information Care Team Personnel Name: DO Gordillo Stephanie Marie Position: Physician - Family Med Member Role: Primary Care Provider Address: [address] [facility] [address] Telecom: [phone] Name: NIKO Hayden Lynn Position: Physician Global Implementation Manager Exempt - Vasc Surg Member Role: Lifetime Relationship Address: [address] [facility] [address] Telecom: [phone] Care Team Related Persons Name: VINAY VILLAFUERTE Insurance Providers Guarantor name: KEIKO Health Plan Information #: 1 Payer: AEMarsNA Member Number: [id number] Policy Number: NA Group Number: [id number] Health Plan Information #: 2 Payer: AETNA Member Number: [id number] Policy Number: NA Group Number: NA
--- OUTSIDE RECORDS SUMMARY | 2024-10-30 11:24 | External Medical Summary | Continuity of Care Document ---
Author Name Unknown Organization [address] Address [address] [place], [place] [id number] Care Team Providers Care Work Order Clerk Name Role Phone Zayda Gordillo Primary Care Physician [phone] [facility] [id number] Date(s): 10/21/24 - 10/21/24 [facility] [address], [address] [place] [address] [phone] Encounter Diagnosis Peripheral arterial disease(Discharge Diagnosis) - 10/21/24 Carotid stenosis, bilateral(Discharge Diagnosis) - 10/21/24 Discharge Disposition: Home or Self Care Attending Physician: MD Evelia, Gigi Allan Encounter Type: Clinic Allergies, Adverse Reactions, Alerts [...] 07/05/15 Bubba rded SARS-CoV-2 (COVID-19) mRNA-vacc - [id number] 04/29/24 Recorded Zoster Vaccine Unspecified 02/17/18 Recorded pneumococcal 13-valent vaccine 08/27/15 Recorded pneumococcal 13-valent vaccine 10/19/14 Recorded tetanus/diphtheria/pertuss, acel (Tdap) 10/19/14 R ecorded Medications amLODIPine 5 mg oral tablet Start: 09/18/24 10:00:00 AM EST, 1 tab, PO, Daily, Disp# 90 tab, Refills: 2, Pharmacy: [id number] Start Date: 09/18/24 Status: Ordered Quantity: 90.0 [...] 1 TABLET BY MOUTH EVERY DAY, Pharmacy: [facility]/pharmacy #[id number] Start Date: 02/26/24 Stop Date: 11/22/24 Status: Ordered Quantity: 90.0 Unit: tab Repeat number: 3 Macular Health Formula oral capsule Start: 04/16/24 9:04:00 AM EDT, See Instructions, 2 capsules po daily Start Date: 04/16/24 Status: Ordered Repeat number: 1 [place]-3 1000 mg oral capsule Start: 08/31/23 7:58:00 AM EST, 1 cap, PO, Daily Start Date: 08/31/23 Status: Ordered Repeat number: 1 pantoprazole 40 mg oral delayed release tablet Start: 08/26/24 6:16:00 AM EST, 1 tab, PO, bid, Disp# 180 tab, Refills: 1, Pharmacy: [id number] Start Date: 08/26/24 Status: Ordered Quantity: 180.0 Unit: tab Repeat number: 1 pravastatin 20 mg oral tablet Start: 02/26/24 6:45:00 AM EDT, 1 tab, PO, qhs, Disp# 90 tab, Refills: 2, Pharmacy: [facility]/pharmacy #[id number] Start Date: 02/26/24 Stop Date: 11/22/24 [...] Effective Dates Health Status Clinical Service Informant Peripheral arterial disease Discharge Diagnosis 10/21/24 Carotid stenosis, bilateral Discharge Diagnosis 10/21/24 Procedures Procedure Date Related Diagnosis Body Site [...] Most recent to oldest [Reference Range]: 1 2 Heart Rate 78 bpm (10/21/24 1:55 PM) Blood Pressure 132/58mmHg (10/21/24 2:00 PM) 138/56mmHg (10/21/24 1:55 PM) Cuff Pulse Pressure 74 mmHg (10/21/24 2:00 PM) 82 mmHg (10/21/24 1:55 PM) BP Location # 1 Right Arm (10/21/24 2:00 PM) Left Arm (10/21/24 1:55 PM) Social History Social History Type Response Smoking Status Never smoked cigaret shelley Sex Female Sex Representation Female (finding) Patient Care team information Care Team Personnel Name: Bouwer, DO, Zayda Carli Position: Provider - Terminated Member Role: Primary Care Provider Address: [address] [place] [address] Telecom: [phone] Name: NIKO Hayden Lynn Position: Physician Tattoo And Body Artist Exempt - Vasc Surg Member Role: Lifetime Relationship Address: [address] [place] [address] Telecom: [phone] Care Team Related Persons Name: VINAY VILLAFUERTE Insurance Providers Guarantor name: Health Plan Information #: 1 Payer: AETNA Member Number: [id number] Policy Number: NA Group Number: [id number] Health Plan Information #: 2 Payer: AETNA Member Number: [id number] Policy Number: NA Group Number: NA
[2024-10-30] MEDS: KETOROLAC TROMETHAMINE 15 MG/ML VIAL IV SCH (13:33)
--- NOTE | 2024-10-30 16:19 | Orthopedic Progress Note ---
Date of Service October 30, 2024 Assessment & Plan (1) S/P total knee arthroplasty: Plan: Routine postoperative care. PT OT tomorrow. Discharge home if she passes PT. Follow-up in the orthopedic clinic 2 weeks after surgery. Admission and Anticipated Discharge Date Admission Date: October 30, 2024 Subjective Patient seen and examined on afternoon rounds. Postop day 0 following right total knee arthroplasty. She reports her pain is well-controlled. She is able to walk to the bathroom and to a chair. Having just done this she is a little short of breath but nothing she is concerned about. No chest pain. No nausea or vomiting. She reports her dressings are fitting her well. Physical Exam Physical Exam: Sitting upright in a chair in no acute distress. Alert and oriented x 3. Right lower extremity exam reveals the knee immobilizer to be in place. Exposed toes are warm and well-perfused. She is able to fire toe flexors and extensors and ankle dorsiflexors and plantar flexors. Sensory intact to light touch over the dorsal and plantar aspects of the foot. Results & Data Vital Signs (Past 12 Hours) Vital Signs Temp Pulse Pulse Pulse Resp BP Pulse Ox 10/30/24 15:24 36.3 C L 87 16 139/68 100 10/30/24 14:23 67 16 133/71 100 10/30/24 13:18 36.3 C L 60 16 115/63 98 10/30/24 12:50 36.3 C L 67 16 119/68 99 10/30/24 12:21 72 16 108/64 99 10/30/24 11:40 62 12 118/47 L 94 10/30/24 11:25 60 15 117/56 L 97 10/30/24 11:10 69 18 111/55 L 98 10/30/24 11:00 36.4 C L 61 16 120/49 L 98 10/30/24 10:50 57 L 15 116/49 L 98 10/30/24 10:40 66 15 116/48 L 98 10/30/24 10:30 65 16 121/48 L 99 10/30/24 10:26 36.1 C L 64 20 118/45 L 99 10/30/24 07:16 36.6 C 67 20 145/73 H 100 O2 Del Method O2 Flow Rate 10/30/24 15:24 Room Air 10/30/24 14:23 Room Air 10/30/24 13:18 Room Air 10/30/24 12:50 Room Air 10/30/24 12:21 Room Air 10/30/24 11:40 Room Air 10/30/24 11:25 Room Air 10/30/24 11:10 Room Air 10/30/24 11:00 Room Air 10/30/24 10:50 Room Air 10/30/24 10:40 Room Air 10/30/24 10:30 Oxymask 4 10/30/24 10:26 Oxymask 6 10/30/24 07:16 Room Air Diagnostic Findings Postoperative x-rays were independently interpreted by me. Hardware is in good position no evidence of complication.
[2024-10-30] MEDS: Scopolamine CHECK PATCH PLACEMENT SCH (16:35)
[2024-10-30] MEDS: PRAVASTATIN SOD 20 MG TAB PO SCH (21:02)
[2024-10-30] MEDS: PANTOprazole 40 MG TAB PO SCH (21:02)
[2024-10-30] MEDS: LOSARTAN POTASSIUM 50 MG TAB PO SCH (21:02)
[2024-10-30] MEDS: amLODIPine BESYLATE 5 MG TAB PO SCH (21:03)
[2024-10-30] MEDS: CEROVITE ADV FORMULA TAB PO SCH (21:03)
[2024-10-30] MEDS: DOCUSATE SODIUM 100 MG CAP PO SCH (21:03)
[2024-10-30] MEDS: SENNA 8.6 MG TAB PO SCH (21:03)
[2024-10-31 03:11] VITALS: O2SAT 98
[2024-10-31 06:23] LABS: Hematocrit (blood only) 32.7 % (37.0-47.0); Hemoglobin 11.1 g/dl (12.0-16.0); Mean Corpuscular Hemoglobin 32.3 pg (25.0-34.0); Mean Corpuscular Hgb Conc 33.9 g/dL (32.0-36.0); Mean Corpuscular Volume 95.1 fL (80.0-100.0); Mean Platelet Volume 9.9 fL (9.4-12.4); Platelet Count 288 K/uL (130-400); RDW Coefficient of Variation 12.9 % (11.5-14.5); RDW Standard Deviation 44.3 fL (36.4-46.3); Red Blood Count 3.44 M/uL (4.20-5.40); White Blood Count 18.77 K/ul (4.8-10.8)
[2024-10-31 06:44] LABS: BUN Creatinine Ratio 32.9 (10-20); Calcium 9.2 mg/dl (8.6-10.3); Creatinine Clr Calc Pharmacy 44.3 ml/min; Potassium 4.3 mmol/L (3.5-5.1)
[2024-10-31] MEDS: CALCIUM 600MG + VIT D 400 IU TAB PO SCH (07:52)
[2024-10-31] MEDS: OMEGA-3 (PURIFIED FISH OIL) 1 GM CAP PO SCH (07:52)
[2024-10-31] MEDS: dexAMETHasone 10 MG in SYRINGE 0 ML IV SCH (07:52)
[2024-10-31] MEDS: ASPIRIN 81 MG ECTAB PO SCH (07:53)
[2024-10-31] MEDS: MULTIVITAMIN TAB PO SCH (07:53)
[2024-10-31 08:01] VITALS: BP 152/66; PULSE 65; RESP 14; TEMP 98.2
[2024-10-31] MEDS ORDERED: COQ10 100 MG PO SCH (09:00)
[2024-10-31] MEDS ORDERED: BIFIDOBACTERIUM INFANTIS 10.5 MG PO SCH (09:00)
--- NOTE | 2024-10-31 10:01 | Orthopedic Progress Note ---
Date of Service October 31, 2024 Assessment & Plan (1) S/P total knee arthroplasty: Plan: PT/OT Weightbearing as tolerated with walker assistance and immobilizer for first 48 hours Ice with easy wrap Keep Silverlon dressing in place Pain control with p.o. medication DVT prophylaxis with HELEN stockings and aspirin Plan is to discharge home today with initial physical therapy for the first 2 weeks Follow-up at [facility] orthopedics previously scheduled With questions or contact our clinic at [phone] Admission and Anticipated Discharge Date Admission Date: October 30, 2024 Subjective This 83-year-old female is day 1 status post right total knee arthroplasty. Patient states she is doing very well. She states that her pain is well- controlled with the p.o. pain medication. She states she has been able to maneuver around her room with a walker and immobilizer in place. Currently she denies chest pain, shortness of breath, fever, chills, sweats, nausea, vomiting or difficulty voiding. She states she did have some diarrhea yesterday. Review of Systems Review of Systems: All systems reviewed & are unremarkable except as noted in Subjective Physical Exam Physical Exam: Right knee: Outer dressing was removed. Silverlon is clean dry and intact and left in place. Patient has some moderate edema noted over the anterior knee. She is able to perform active straight leg raise test. She is able to actively dorsi and plantarflex her foot. Active knee range of motion is from 0 degrees of extension to 90 degrees of flexion without discomfort. Patient's quad strength is 4 out of 5. She is neurovascularly intact in right lower extremity. Results & Data Vital Signs (Past 12 Hours) Vital Signs Temp Pulse Pulse Resp BP BP Pulse Ox 10/31/24 07:59 36.8 C 65 14 152/66 H 98 10/31/24 03:10 36.4 C L 69 16 138/64 98 10/30/24 23:09 36.4 C L 94 H 16 144/73 H 149/72 H 97 O2 Del Method 10/31/24 07:59 Room Air 10/31/24 03:10 Room Air 10/30/24 23:09 Room Air Diagnostic Findings Laboratory Results WBC 18.77 K/ul (4.8-10.8) H 10/31/24 05:23 RBC 3.44 M/uL (4.20-5.40) L 10/31/24 05:23 Hgb 11.1 g/dl (12.0-16.0) L 10/31/24 05:23 Hct 32.7 % (37.0-47.0) L 10/31/24 05:23 MCV 95.1 fL (80.0-100.0) 10/31/24 05:23 MCH 32.3 pg (25.0-34.0) 10/31/24 05:23 MCHC 33.9 g/dL (32.0-36.0) 10/31/24 05:23 RDW Std Deviation 44.3 fL (36.4-46.3) 10/31/24 05:23 RDW Coeff of Shanel 12.9 % (11.5-14.5) 10/31/24 05:23 Plt Count 288 K/uL (130-400) 10/31/24 05:23 MPV 9.9 fL (9.4-12.4) 10/31/24 05:23 Sodium 137 mmol/L (136-145) 10/31/24 05:23 Potassium 4.3 mmol/L (3.5-5.1) 10/31/24 05:23 Chloride 104 mmol/L (98-107) 10/31/24 05:23 Carbon Dioxide 30 mmol/L (21-32) 10/31/24 05:23 Anion Gap 3 (3-11) 10/31/24 05:23 BUN 24 mg/dl (6-23) H 10/31/24 05:23 Creatinine 0.73 mg/dl (0.6-1.2) 10/31/24 05:23 Est Cr Clr Drug Dosing 44.3 ml/min 10/31/24 05:23 eGFR 81.04 10/31/24 05:23 BUN/Creatinine Ratio 32.9 (10-20) H 10/31/24 05:23 Glucose 124 mg/dl (70-99(Fasting)) H 10/31/24 05:23 Calcium 9.2 mg/dl (8.6-10.3) 10/31/24 05:23 Impressions Knee X-Ray 10/30/24 10:27 XR knee RT 1 or 2V routine CLINICAL HISTORY: Surgical Post Op COMPARISON: 10/15/2024 FINDINGS: Postop total knee replacement examination consisting of an AP and lateral view demonstrates satisfactory positioning and alignment of the prosthetic components. Postoperative changes are noted in the soft tissues. IMPRESSION: Satisfactory postop appearance. ACT 112: Negative or not required by law. Electronically signed by: Melissa Harden M.D. 10/30/2024 10:47 AM
--- NOTE | 2024-10-31 10:10 | Discharge Summary ---
Date of Service October 31, 2024 Principal Diagnosis Status post right total knee arthroplasty Discharge Exam Right knee: Outer dressing was removed. Silverlon is clean dry and intact and left in place. Patient has some moderate edema noted over the anterior knee. She is able to perform active straight leg raise test. She is able to actively dorsi and plantarflex her foot. Active knee range of motion is from 0 degrees of extension to 90 degrees of flexion without discomfort. Patient's quad strength is 4 out of 5. She is neurovascularly intact in right lower extremity. Discharge Data Allergies Allergy/AdvReac Type Severity Reaction Status Date / Time latex Allergy Mild Rash Verified 10/30/24 07:13 nickel Allergy Mild Rash Verified 10/30/24 07:13 Beef Containing Products Allergy Abdominal Verified 10/30/24 12:37 Pain Alpha-Gal AdvReac Intermediate Diarrhea Verified 10/30/24 07:13 (Quiocvpnt-Inebr-2,3-Gala Procedures Performed Operation Date: 10/30/24 08:15 Actual Procedures p Right Total Knee Arthroplasty, Cemented(Right) - Collin Rogers MD Ordered Studies 10/30/24 05:00 US - OR guided needle placemen Routine Hospital Course (1) S/P total knee arthroplasty: Patient had an uneventful overnight stay following total knee arthroplasty. She is very pleased with the results. She is hoping to be discharged home later today with in-home physical therapy for the first 2 weeks. PT/OT Weightbearing as tolerated with walker assistance and immobilizer for first 48 hours Ice with easy wrap Keep Silverlon dressing in place Pain control with p.o. medication DVT prophylaxis with HELEN stockings and aspirin Plan is to discharge home today with initial physical therapy for the first 2 weeks Follow-up at [facility] orthopedics previously scheduled With questions or contact our clinic at [phone] Total Time Total Time Spent Total Time Spent (In Minutes): 25 mins Discharge Plan Discharge Items Patient Disposition: Home - Home Health Services Reason For Visit: Right Knee Osteoarthritis Discharge Diagnosis: Right total knee arthroplasy Activity: As commented below Lifting: None Bathing: Keep incision dry Bathing Comment: May shower later today Sexual Activity: Wait until after follow-up appointment Exercise/Sports: Wait until after follow-up appointment Driving/Machine Use: No driving until cleared by holistic specialist Weightbearing: Right weightbearing Weightbearing Comment: As tolerated with walker assistance Non-emergency contact: Surgeon Call non-emergency contact if: you have any medication questions, your pain is not controlled, your temperature is above 101.5, your wound has increased drainage and your wound pain has increased Follow-up/Referrals: Lizzeth Pizano PA-C [Primary Care Provider] - Diet: Regular Addtl Attending Provider Instructions: Post-operative Instructions Dear Patient and Family/Friends, Before you are discharged from the hospital, it is important to know what to expect when you get home after surgery. To that end, we have created this sheet of discharge instructions which covers many commonly asked questions. Make sure you go through this sheet in its entirety with your nurse before you are discharged. Please note that we will go over the specifics of your surgery and recovery when you return for your first post-operative visit. Sincerely, Dr. Rogers Medications 1. Oxycodone 5 mg: Take 1-2 tabs every 4-6 hours as needed for postoperative pain control. A prescription for this medication will be sent to your pharmacy. 2. Diclofenac sodium 75 mg: Take 1 tablet twice daily for the first 30 days postoperatively for pain and inflammation relief. A prescription of this will will be sent to your pharmacy with 1 additional refill. 3. Aspirin 81 mg: Increase your daily aspirin to twice daily for the first 30 days postoperatively for blood clot prevention. 4. Extra strength Tylenol 500 mg: Take 2 tablets every 6-8 hours as needed for additional pain relief. Please purchase the medication. Pain Expect to be in a fair amount of pain after surgery. Remember, our goal is not to eliminate your pain, but to make it tolerable. It is a good idea to stay ahead of your pain by taking the medications you were prescribed once you get home. Typically, the pain starts improving 3-7 days after surgery. You should start weaning off the narcotic pain medication (oxycodone, hydrocodone, hydromorphone, morphine) as soon as your pain improves. Please call our office if your pain is not adequately controlled. Ice Ice your operative site at least 5 times a day for 15-30 minutes at a time. Make sure you have a thin cloth between the ice or cooling unit and your skin to prevent molina bite. This is especially important if you received a nerve block. Continue icing your operative site for the first 5-7 days after surgery, then as needed. Diet/Nausea/Vomiting Start by drinking clear liquids and eating crackers. If you can tolerate this, then you may resume your normal diet. If you feel nauseated or vomit, take Zofran/ondansetron (if prescribed). Please call our office if you have intractable nausea or vomiting, or, if after hours, you may go to the Emergency Room for help. Constipation Constipation is a common side effect of narcotic pain medication. If you have not had a bowel movement within 2 days after surgery, we recommend purchasing an over the counter laxative such as Milk of Magnesia, Dulcolax, or Miralax from a local pharmacy, and taking it as instructed. Call our clinic if any questions. Slings and Braces If you were placed in a sling or brace, it must be worn at all times, including sleep. You may remove your sling or brace for physical therapy, home exercises, and showering. The length of time you will be in your brace and range of motion restrictions depends on what surgery you had; these details will be reviewed at your first post-operative appointment. Nerve block The anesthesia team sometimes places a nerve block to help with post-operative pain control. This results in significant numbness and inability to move the extremity. The nerve block usually wears off in 8-12 hours, but sometimes can last up to 24 hours. Please call our office if you are still unable to move your extremity after 24 hours, unless you received a pain pump to take home. Nerve blocks typically wear off quickly, so start taking pain medication as soon as you start feeling soreness near your surgical site. Weight bearing and Range of Motion. Do not bear any weight through your operative extremity immediately after surgery. If you had upper extremity surgery, do not lift anything with that arm. If you are in a knee brace, keep it locked in place until your follow-up. We will discuss your weight bearing, range of motion, and lifting restrictions in detail at your first post-operative appointment. Continuous Passive Motion (CPM) Machine If you were prescribed a CPM machine, it will start after your first post- operative appointment, at which time we will give you instructions on the range of motion settings and duration of treatment Physical therapy You will be given a prescription for physical therapy or occupational therapy at your first post-operative appointment. Typically, patients start therapy within 1 week of surgery Wound care and showering We will inspect your wound at your first post-operative visit, and may do a dressing change at that time. Most patients will be in a water-proof dressing that is removed 14 days after surgery. It is normal to see some dried blood on the dressing. Do not remove your dressing, paper strips or sutures yourself unless you are given permission. Showering is allowed the day after surgery. Do not scrub or remove any dressings. The wound should not be submerged underwater (i.e. in a bathtub or pool) until 4 weeks after surgery HELEN stockings If you were given white stockings, these are to be worn at all times except to shower (on both legs) for the first 2 weeks after surgery. Driving You may not drive while taking narcotic pain medication or while in a cast, splint, sling or brace. You, the patient, need to make the final determination about when you are safe to drive, however, the earliest you may consider driving after surgery is below: Hand/Wrist/Elbow Surgery: 3 days Shoulder Surgery: 2 weeks Hip,/Knee/Ankle Surgery: 4 weeks Fracture repair: 6 weeks Return to Work Your return to work depends on what surgery was done and what type of work you do. Please bring any paperwork your employer needs completed to your first post-operative visit. Also, bring a description of your job duties, as this helps us to understand what risks you may face at work. Travel Avoid long distance travel (greater than 1 hour) in airplanes and cars for the first 6 weeks after surgery. If you must travel, you need to have a Doppler ultrasound done before you travel to rule out a blood clot in your legs. Follow-up You should have a follow-up appointment already scheduled 1-2 days after surgery. If not, please contact our office to make this appointment before you leave the hospital. When to call the office It is normal to have swelling and bruising in the limb that was operated on. This will improve with time. It is also normal to have fevers for the first 2 days after surgery. Reasons you should call your doctor include: Uncontrolled pain; Nausea, vomiting, or constipation that does not improve with medication; Fevers over 101.5, chills, sweats; Drainage or bleeding from the wound; Foul odor; Spreading areas of redness; Any other concerns. Contact Information Please call Dr. Rogers's office at [phone] with any concerns. Pending Studies at Discharge: No Stand-Alone Forms: My [facility] Medications and DC Order Prescriptions: New acetaminophen [Tylenol Extra Strength] 500 mg Tablet 1,000 mg PO Q8 30 Days Qty: 180 0RF oxycodone 5 mg Tablet 5 - 10 mg PO Q4H MDD Ongoing treatment; max 6/day PRN (Reason: Postoperative pain control) Qty: 28 0RF diclofenac sodium 75 mg tablet,delayed release (DR/EC) 75 mg PO BID 30 Days Qty: 60 1RF Continued Align (B.infantis) 10.5 mg (10 million cell) tablet,chewable 10.5 mg PO DAILY Qty: 30 0RF pravastatin 20 mg tablet 20 mg PO HS losartan 100 mg tablet 100 mg PO HS amlodipine 5 mg tablet 5 mg PO QPM pantoprazole 20 mg tablet,delayed release (DR/EC) 20 mg PO BID calcium citrate-vitamin D3 [Citracal + D Maximum] 315 mg-6.25 mcg (250 unit) tablet 2 tab PO DAILY coQ10 (ubiquinol) [Qunol Soto CoQ10] 100 mg capsule 100 mg PO DAILY Macular Health Formula 5-1-7.5 mg capsule 1 cap PO BID fluticasone propionate [Flonase Allergy Relief] 50 mcg/actuation [place],Suspension 2 mcg INTRANASAL UD PRN (Reason: allergies) omega 8-bks-pkt-fish oil 900-1,400 mg Capsule,Delayed Release(Dr/Ec) 1 cap PO DAILY Changed aspirin 81 mg tablet,delayed release (DR/EC) 81 mg PO BID Qty: 0 0RF Admission Data Admit Date/Time: 10/30/24 10:27 Attending Provider: Collin Rogers Admit Provider: Collin Rogers Primary Care Provider: Lizzeth Pizano Other Providers: [facility],Home Healthcare; [facility],Referral Center Other Interventions: Discharge Summary Assessment (RN) Last Done: 10/31/24 09:27
[2024-10-31] MEDS: oxyCODONE HCL IR 5 MG TAB (IMMEDIATE RELEASE) PO PRN (11:32)
== END 2024-10-31 11:55 | disposition home health service (06) ==
LOC: ASU 06:55 → 3E 06:55